=== PATIENT | male | born 1935 | race Caucasian/White ===

== ENCOUNTER → 2016-11-10 | Outpatient (CLI) | payer BLACK LUNG, MEDICARE, OTHER ==
[~2016-11-10] MED LIST: ARICEPT5 MG PO; ASPIRIN EC81 MG PO; CARDURA 2MG TAB2 MG PO; COLACE 100MG C100 MG PO; COMBIVENT RESPIM4 GM INH; COMBIVENT0.074 GM/I INH; IMDUR ER TAB 3030 MG PO; IMDUR ER TAB 6060 MG PO; LASIX20 MG PO; LEVAQUIN TAB 5500 MG PO; LIPITOR TAB 1010 MG PO; LISINOPRIL20 MG PO; MIRALAX17 GM PO; NORVASC 5 MG TAB5 MG PO; PLAVIX75 MG PO; PROCTOFOAM-HC 110 G1 PR; PROTONIX40 MG PO; REMERON30 MG PO; TRAMADOL HCL50 MG PO; ZANTAC300 MG PO
== END ==
LOC: HEART 5 11-04 09:00
DX: R07.9 Chest pain, unspecified (principal)
CPT/HCPCS: 78452; A9502; J2785

== ENCOUNTER 2020-08-02 14:52 | Inpatient (IN) | payer MEDICARE, OTHER ==
[~2020-08-02] VITALS: Ht 175.3 cm; Wt 63.5 kg
[~2020-08-02 14:52] MED LIST changes: -LIPITOR TAB 1010 MG PO; +LIPITOR TAB 2020 MG PO; -NORVASC 5 MG TAB5 MG PO; +NORVASC10 MG PO
[2020-08-02 15:38] LABS: RED BLOOD COUNT 4.48 M/UL (4.20-5.50); WHITE BLOOD COUNT 10.4 K/UL (4.5-11.0)
[2020-08-02 16:03] LABS: BUN/CREATININE RATIO 23 (0-10)
[2020-08-02] MEDS ORDERED: AZELASTINE137 MCG/0. (18:32)
[2020-08-02] MEDS ORDERED: VITAMIN D350 MCG PO (18:33)
[2020-08-02] MEDS ORDERED: CLOPIDOGREL75 MG PO (18:34)
[2020-08-02] MEDS ORDERED: ACID REDUCER10 MG PO (18:36)
[2020-08-02] MEDS ORDERED: RESTORIL 30 MG30 MG PO (18:37)
[2020-08-03 03:23] LABS: HEMOGLOBIN 13.2 gm/dl (14.0-17.5); RED BLOOD COUNT 4.29 M/UL (4.20-5.50)
[2020-08-03 03:24] LABS: WHITE BLOOD COUNT 7.6 K/UL (4.5-11.0)
[2020-08-03 03:44] LABS: BUN/CREATININE RATIO 22 (0-10)
[2020-08-04 06:33] LABS: HEMOGLOBIN 12.8 gm/dl (14.0-17.5); RED BLOOD COUNT 4.16 M/UL (4.20-5.50)
[2020-08-04 06:36] LABS: WHITE BLOOD COUNT 4.4 K/UL (4.5-11.0)
[2020-08-04 06:52] LABS: BUN/CREATININE RATIO 18 (0-10)
[2020-08-04] MEDS ORDERED: OMNICEF 300 MG300 MG PO (14:37)
== END 2020-08-04 17:03 | disposition home or self-care (01) | DRG 689 ==
LOC: ER1 14:52 → CDU 18:29 → M/S 18:29 → CDU 18:29 → M/S 19:40
PROVIDERS: Emergency Medicine; ADMIT Internal Medicine
DX: N30.00 Acute cystitis without hematuria (principal); J18.9 Pneumonia, unspecified organism; J44.0 Chronic obstructive pulmonary disease with (acute) lower respiratory infection; B96.20 Unspecified Escherichia coli [E. coli] as the cause of diseases classified elsewhere; G89.29 Other chronic pain; N43.3 Hydrocele, unspecified; N50.3 Cyst of epididymis; M50.30 Other cervical disc degeneration, unspecified cervical region; Z20.822 Contact with and (suspected) exposure to COVID-19; M54.2 Cervicalgia; I25.10 Atherosclerotic heart disease of native coronary artery without angina pectoris; I10 Essential (primary) hypertension; F80.81 Childhood onset fluency disorder; M54.9 Dorsalgia, unspecified; Z79.02 Long term (current) use of antithrombotics/antiplatelets; Z79.899 Other long term (current) drug therapy; Z88.0 Allergy status to penicillin; Z95.5 Presence of coronary angioplasty implant and graft; Z86.73 Personal history of transient ischemic attack (TIA), and cerebral infarction without residual deficits
CPT/HCPCS: 36415; 70450; 71045; 72125; 76870; 80048; 80053; 81001; 82550; 82553; 83605; 83874; 84484; 85025; 85027; 87040; 87077; 87086; 87186; 93005; 96365; 99285; J0456; J0696; J7030; J7040; U0002

== ENCOUNTER → 2020-08-27 | Outpatient (CLI) | payer MEDICARE, OTHER ==
[~2020-08-27] MED LIST changes: +ACID REDUCER10 MG PO; +AZELASTINE137 MCG/0.; +CLOPIDOGREL75 MG PO; +OMNICEF 300 MG300 MG PO; +RESTORIL 30 MG30 MG PO; +VITAMIN D350 MCG PO
== END ==
LOC: HEART 5 09:04
DX: R07.9 Chest pain, unspecified (principal); I51.89 Other ill-defined heart diseases; I51.7 Cardiomegaly
CPT/HCPCS: 78452; A9502; J2785

== ENCOUNTER → 2020-09-26 | Outpatient (CLI) | payer MEDICARE, OTHER | LOC: HEART 5 09:48 | DX: R94.39 Abnormal result of other cardiovascular function study (principal); R07.9 Chest pain, unspecified; I50.30 Unspecified diastolic (congestive) heart failure; I07.1 Rheumatic tricuspid insufficiency; I34.0 Nonrheumatic mitral (valve) insufficiency | CPT/HCPCS: 93306 ==

== ENCOUNTER → 2021-01-16 | Outpatient (CLI) | payer MEDICARE, OTHER | LOC: KOH-I 13:30 | DX: I65.23 Occlusion and stenosis of bilateral carotid arteries (principal) | CPT/HCPCS: 93880 ==

== ENCOUNTER 2021-04-20 12:55 | Observation (INO) | payer MEDICARE, OTHER ==
[~2021-04-20] VITALS: Ht 175.3 cm; Wt 63.5 kg
[~2021-04-20 12:55] MED LIST changes: -ACID REDUCER10 MG PO; -RESTORIL 30 MG30 MG PO; -VITAMIN D350 MCG PO
[2021-04-20 13:32] LABS: HEMOGLOBIN 14.8 gm/dl (14.0-17.5); RED BLOOD COUNT 4.73 M/UL (4.20-5.50); WHITE BLOOD COUNT 3.3 K/UL (4.5-11.0)
[2021-04-20 13:49] LABS: BUN/CREATININE RATIO 25 (0-10)
[2021-04-20] MEDS ORDERED: VITAMIN D325 MCG PO (18:33)
[2021-04-20] MEDS ORDERED: FUROSEMIDE20 MG PO (18:34)
[2021-04-20] MEDS ORDERED: NITROSTAT 0.40.4 MG SL (18:35)
[2021-04-20] MEDS ORDERED: VITAMIN E400 UNI1 PO (18:35)
[2021-04-20] MEDS ORDERED: ACID REDUCER10 MG PO (18:36)
[2021-04-20] MEDS ORDERED: RESTORIL 30 MG30 MG PO (18:37)
[2021-04-21 02:24] LABS: HEMOGLOBIN 14.7 gm/dl (14.0-17.5); RED BLOOD COUNT 4.73 M/UL (4.20-5.50)
[2021-04-21 02:42] LABS: WHITE BLOOD COUNT 5.4 K/UL (4.5-11.0)
[2021-04-21 03:56] LABS: BUN/CREATININE RATIO 22 (0-10)
[2021-04-22 04:14] LABS: RED BLOOD COUNT 4.84 M/UL (4.20-5.50); WHITE BLOOD COUNT 4.9 K/UL (4.5-11.0)
[2021-04-22 04:31] LABS: BUN/CREATININE RATIO 25 (0-10)
[2021-04-23 06:50] LABS: HEMOGLOBIN 14.9 gm/dl (14.0-17.5); RED BLOOD COUNT 4.86 M/UL (4.20-5.50)
[2021-04-23 07:43] LABS: BUN/CREATININE RATIO 31 (0-10)
[2021-04-23] MEDS ORDERED: DONEPEZIL HCL5 MG PO (09:42)
== END 2021-04-23 10:15 | disposition home or self-care (01) ==
LOC: ER1 12:55 → M/S 15:53 → CDU 15:53 → M/S 17:28
PROVIDERS: Emergency Medicine; Internal Medicine; Physician Assistant; ADMIT Internal Medicine
DX: R55 Syncope and collapse (principal); I95.1 Orthostatic hypotension; R07.9 Chest pain, unspecified; N43.3 Hydrocele, unspecified; I10 Essential (primary) hypertension; E78.5 Hyperlipidemia, unspecified; D72.819 Decreased white blood cell count, unspecified; I25.10 Atherosclerotic heart disease of native coronary artery without angina pectoris; I65.21 Occlusion and stenosis of right carotid artery; J98.11 Atelectasis; Z20.822 Contact with and (suspected) exposure to COVID-19; Z85.828 Personal history of other malignant neoplasm of skin; Z86.73 Personal history of transient ischemic attack (TIA), and cerebral infarction without residual deficits
CPT/HCPCS: ECHO; 36415; 70450; 70544; 70551; 71045; 80048; 80053; 81001; 82550; 82553; 82962; 83605; 83735; 83874; 84484; 85025; 85027; 93005; 93306; 93880; 94640; 94664; 94760; 99285; G0378; U0002

== ENCOUNTER 2021-05-03 19:23 | Emergency (ER) | payer MEDICARE, OTHER ==
[~2021-05-03 19:23] MED LIST changes: +ACID REDUCER10 MG PO; +DONEPEZIL HCL5 MG PO; +FUROSEMIDE20 MG PO; +NITROSTAT 0.40.4 MG SL; +RESTORIL 30 MG30 MG PO; +VITAMIN D325 MCG PO; +VITAMIN E400 UNI1 PO
[2021-05-03 21:00] LABS: HEMOGLOBIN 14.1 gm/dl (14.0-17.5); RED BLOOD COUNT 4.54 M/UL (4.20-5.50); WHITE BLOOD COUNT 3.8 K/UL (4.5-11.0)
[2021-05-03 21:37] LABS: BUN/CREATININE RATIO 25 (0-10)
== END 2021-05-04 02:30 | disposition home or self-care (01) ==
LOC: ER1 19:23
PROVIDERS: Family Medicine
DX: F03.90 Unspecified dementia, unspecified severity, without behavioral disturbance, psychotic disturbance, mood disturbance, and anxiety (principal); R42 Dizziness and giddiness; R53.1 Weakness; I10 Essential (primary) hypertension; Z86.73 Personal history of transient ischemic attack (TIA), and cerebral infarction without residual deficits; I25.10 Atherosclerotic heart disease of native coronary artery without angina pectoris
CPT/HCPCS: 70450; 71045; 80053; 82550; 82553; 83874; 84484; 85025; 93005; 99285

== ENCOUNTER 2022-02-19 17:26 | Emergency (ER) | payer MEDICARE, OTHER ==
[2022-02-19 18:11] LABS: HEMOGLOBIN 13.9 gm/dl (14.0-17.5); RED BLOOD COUNT 4.45 M/UL (4.20-5.50); WHITE BLOOD COUNT 4.3 K/UL (4.5-11.0)
[2022-02-19 18:39] LABS: BUN/CREATININE RATIO 27 (0-10)
[2022-02-20] MEDS ORDERED: ZOFRAN 4 MG TAB4 MG PO (00:53)
[2022-02-20] MEDS ORDERED: ENULOSE10 GM/15 M PO (00:53)
== END 2022-02-20 00:10 | disposition home or self-care (01) ==
LOC: ER1 17:26
PROVIDERS: Emergency Medicine
DX: K59.00 Constipation, unspecified (principal)
CPT/HCPCS: 71045; 80053; 81001; 82550; 82553; 83690; 84484; 85025; 93005; 99284

== ENCOUNTER 2022-03-07 10:06 | Emergency (ER) | payer MEDICARE, OTHER ==
[~2022-03-07] VITALS: Ht 175.3 cm; Wt 70.8 kg
[~2022-03-07 10:06] MED LIST changes: +ENULOSE10 GM/15 M PO; +ZOFRAN 4 MG TAB4 MG PO
[2022-03-07 11:05] LABS: HEMOGLOBIN 13.9 gm/dl (14.0-17.5); RED BLOOD COUNT 4.48 M/UL (4.20-5.50); WHITE BLOOD COUNT 5.3 K/UL (4.5-11.0)
[2022-03-07 11:31] LABS: BUN/CREATININE RATIO 18 (0-10)
== END 2022-03-07 14:40 | disposition home or self-care (01) ==
LOC: ER1 10:06
PROVIDERS: Emergency Medicine
DX: U07.1 COVID-19 (principal); I10 Essential (primary) hypertension
CPT/HCPCS: 80053; 82550; 82553; 83690; 84484; 85025; 99284; Q0222